=== PATIENT | female | born 2000 | race Caucasian/White ===

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

== ENCOUNTER → 2019-03-02 12:34 | Outpatient (CLI) | payer MEDICAID, SELFPAY ==
[2019-03-02 13:37] LABS: HCG,Quantitative 3199 mIU/mL
== END ==
PROVIDERS: Visit Provider Nurse Practitioner Obstetrics & Gynecology
DX: Z32.00 Encounter for pregnancy test, result unknown (principal)
CPT/HCPCS: 36415; 84702

== ENCOUNTER → 2019-03-31 08:16 | Outpatient (CLI) | payer MEDICAID, SELFPAY ==
--- NOTE | 2019-03-31 08:38 | US_ITS ---
US OB transvaginal: INDICATION: ITS.REASON: US OB Dates ORDERING PHYSICIAN: Tito Merchant MD PATIENT AGE: 19 years FINDINGS: There is a single live intrauterine gestation with a crown-rump length of 2.4 cm correlating to gestational age of 9 weeks and 1 day. Estimated due date by ultrasound is 11/02/2019. Yolk sac is still visible. Amniotic and chorion have not yet fused. heart tones are present at FHR 172 bpm. Adnexa have an unremarkable appearance. There is a 15 mm right corpus luteum cyst. IMPRESSION: Live intrauterine gestation at 9 weeks 1 day with an estimated due date by ultrasound of 11/02/2019.
== END ==
PROVIDERS: PCP Orthopaedic Surgery; Visit Provider Nurse Practitioner Obstetrics & Gynecology
DX: O26.841 Uterine size-date discrepancy, first trimester (principal)
CPT/HCPCS: 76817

== ENCOUNTER → 2019-06-19 13:25 | Outpatient (CLI) | payer MEDICAID, SELFPAY ==
--- NOTE | 2019-06-19 13:31 | US_ITS ---
PROCEDURE: US OB /MATERNAL DETAIL CLINICAL INDICATION: 20 wk + Anatomy Scan-US OB COMPLETE COMPARISON: No exams were available for comparison FINDINGS: Single viable intrauterine gestation. Breech position. Placenta: Posteriorplacenta grade 1. There is average amount fluid. The cervix appears satisfactory. Closed and measuring 3 cm in length. Complete survey performed and was unremarkable on the submitted images as in PACS. No discrete anomalies identified on survey imaging by technologist. Active fetus. Three-vessel cord with satisfactory umbilical cord insertion. 4- chamber heart noted. Survey of brain & ventricles Unremarkable. Face and neck survey unremarkable. Diaphragm and chest views unremarkable. Abdomen: Both kidneys noted and unremarkable. Stomach noted and satisfactory. Spine: Survey of the spine satisfactory with no anomalies identified nor imaged. Both arms and legs noted. Amniotic Fluid: Adequate. Maternal adnexa: No significant findings. Measurements: Average ultrasound age 20w1d. Gestational Age 20w5d Estimated due date by ultrasound age 0311/05/2019. Estimated weight 345.7 ggrams. BPD = the 19 week 4 day OFD = 20 weeks 6 day HC = 19 week 5 day AC = 20 week 6 day FL = 20 weeks 0 day Growth Percentile= 25% Heart Rate = 139 bpm Cerebellum = 19 weeks 6 day Humerus = 21 week 1 day HC/AC is 1.08 CI is 0.72 FL/BPD is 0.72 FL/AC is 0.2 IMPRESSION: There is a single live fetus which is in breech presentation with an average ultrasound age of 20 weeks and 1 day. All parameters correlate with no obvious anomalies. Please see above for detail Dictated by: Diogenes Lilly MD 06/19/2019 16:19 Electronically signed by Diogenes Lilly MD in [place] 06/19/2019 16:19
== END ==
PROVIDERS: PCP Nurse Practitioner; Visit Provider Nurse Practitioner Obstetrics & Gynecology
DX: Z36.0 Encounter for antenatal screening for chromosomal anomalies (principal)
CPT/HCPCS: 76811

== ENCOUNTER → 2019-07-01 12:00 | Outpatient (CLI) | payer MEDICAID, SELFPAY ==
[2019-07-01 13:40] LABS: Basophils % 0.5 % (0.1-2.0); Eosinophils # 0.1 K/mm3 (0.0-0.4); Eosinophils % 0.9 % (0.1-12.0); Hematocrit 39.1 % (37.0-47.0); Hemoglobin 12.9 g/dL (12.2-16.2); Lymphocytes % 23.3 % (10-50); Mean Corpuscular Hemoglobin 35.1 pg (27.0-31.2); Mean Corpuscular Volume 106.2 fl (81-99); Mean Platelet Volume 8.4 fl (7.4-10.4); Monocytes # 0.3 K/mm3 (0.1-1.0); Monocytes % 3.1 % (1.7-9.3); Neutrophils # 6.3 K/mm3 (1.8-7.8); Neutrophils % 72.2 % (37.0-80.0); Platelet Count 303 K/mm3 (142-424); Red Blood Count 3.68 M/mm3 (4.20-5.40); Red Cell Distribution Width 14.7 % (11.5-17.5); White Blood Count 8.7 K/mm3 (4.8-10.8)
[2019-07-02 08:14] LABS: HIV Screen 4th Generation wRfx Non Reactive (Non Reactive)
[2019-07-02 12:04] LABS: Hepatitis B Surface Antigen Negative (Negative); Hepatitis C Antibody <0.1 s/co ratio (0.0-0.9); Rapid Plasma Reagin Ab Titer Non Reactive (NonRea<1:1)
== END ==
PROVIDERS: Visit Provider Nurse Practitioner Obstetrics & Gynecology
DX: Z34.90 Encounter for supervision of normal pregnancy, unspecified, unspecified trimester (principal)
CPT/HCPCS: 36415; 85025; 86592; 86703; 86762; 86850; 87340; 87380; G0432

== ENCOUNTER → 2019-08-04 07:57 | Outpatient (CLI) | payer MEDICAID, SELFPAY ==
[2019-08-04 08:52] LABS: Glucose,Fasting 76 mg/dL (60-105)
[2019-08-04 10:04] LABS: Glucose 1 Hour 91 mg/dL (74-106)
== END ==
PROVIDERS: Visit Provider Nurse Practitioner Obstetrics & Gynecology
DX: Z34.90 Encounter for supervision of normal pregnancy, unspecified, unspecified trimester (principal)
CPT/HCPCS: 36415; 82951

== ENCOUNTER → 2019-09-29 17:04 | Outpatient (CLI) | payer MEDICAID, SELFPAY | LOC: LAB 17:05 → LAB.DROPOF 17:05 | PROVIDERS: Visit Provider Nurse Practitioner Obstetrics & Gynecology | DX: Z34.90 Encounter for supervision of normal pregnancy, unspecified, unspecified trimester (principal) | CPT/HCPCS: 86403 ==

== ENCOUNTER → 2019-10-22 09:44 | Outpatient (CLI) | payer MEDICAID, SELFPAY ==
[2019-10-22 10:14] LABS: Basophils % 0.2 % (0.1-2.0); Eosinophils # 0.1 K/mm3 (0.0-0.4); Eosinophils % 0.6 % (0.1-12.0); Hematocrit 34.7 % (37.0-47.0); Hemoglobin 11.4 g/dL (12.2-16.2); Lymphocytes # 1.5 K/mm3 (0.7-4.5); Lymphocytes % 16.3 % (10-50); Mean Corpuscular HGB Conc 32.8 g/dL (31.8-35.4); Mean Corpuscular Hemoglobin 31.2 pg (27.0-31.2); Mean Corpuscular Volume 95.1 fl (81-99); Mean Platelet Volume 8.3 fl (7.4-10.4); Monocytes # 0.3 K/mm3 (0.1-1.0); Monocytes % 2.8 % (1.7-9.3); Neutrophils # 7.2 K/mm3 (1.8-7.8); Platelet Count 269 K/mm3 (142-424); Red Blood Count 3.65 M/mm3 (4.20-5.40); Red Cell Distribution Width 14.7 % (11.5-17.5)
[2019-10-22 11:35] LABS: Chloride 105 mmol/L (98-107); Potassium 4.2 mmoL/L (3.5-5.1); Sodium 136 mmol/L (136-145)
[2019-10-22 11:38] LABS: Anion Gap 13.2 mEq/L (5-15); Blood Urea Nitrogen 7 mg/dl (7-17); Carbon Dioxide 22 mmol/L (22.0-30.0); Estimated Glomerular Filt Rate 126 ml/min (>60); GFR (African American) 153 ML/MIN (>60)
[2019-10-22 11:39] LABS: Calcium 8.9 mg/dl (8.4-10.2); Glucose 88 mg/dl (74-100)
== END ==
PROVIDERS: Visit Provider Nurse Practitioner Obstetrics & Gynecology
DX: Z01.818 Encounter for other preprocedural examination (principal); O34.219 Maternal care for unspecified type scar from previous cesarean delivery; O82 Encounter for cesarean delivery without indication
CPT/HCPCS: 36415; 80048; 85025

== ENCOUNTER 2019-10-26 04:57 | Inpatient (IN) ==
[2019-10-26 05:36] LABS: Basophils # 0.1 K/mm3 (0-0.2); Basophils % 0.5 % (0.1-2.0); Eosinophils # 0.1 K/mm3 (0.0-0.4); Eosinophils % 0.7 % (0.1-12.0); Hematocrit 33.7 % (37.0-47.0); Hemoglobin 10.8 g/dL (12.2-16.2); Lymphocytes # 2.3 K/mm3 (0.7-4.5); Lymphocytes % 24.8 % (10-50); Mean Corpuscular HGB Conc 32.1 g/dL (31.8-35.4); Mean Corpuscular Volume 93.5 fl (81-99); Mean Platelet Volume 8.6 fl (7.4-10.4); Monocytes # 0.4 K/mm3 (0.1-1.0); Neutrophils # 6.6 K/mm3 (1.8-7.8); Platelet Count 303 K/mm3 (142-424); Red Cell Distribution Width 14.5 % (11.5-17.5); White Blood Count 9.4 K/mm3 (4.8-10.8)
[2019-10-26 05:36] LABS: Microscopic, Urine URINE MICROSCOPIC (MICROSCOPIC)
[2019-10-26 05:45] LABS: Calcium 8.6 mg/dl (8.4-10.2)
[2019-10-26 05:48] LABS: Appearance,Urine CLEAR (Clear); Bilirubin,Urine Negative (Negative); Blood, Urine 1+ (Negative); Color,Urine YELLOW (Yellow); Glucose,Urine (UA) Negative (Negative); Ketones,Urine Negative (Negative); Leukocyte Esterase,Urine Negative (Negative); Protein,Urine Negative (Negative); Urobilinogen,Urine 0.2 EU/dl (0.2)
[2019-10-26 06:02] LABS: Amphetamine/Metha Screen,Urine Negative ng/ml (<1000); Benzodiazepines Screen,Urine Negative ng/ml (<200)
[2019-10-26 06:03] LABS: Barbiturates Screen,Urine Negative ng/ml (<200); Cannabinoid Screen,Urine Negative ng/ml (<50)
[2019-10-26 06:04] LABS: Cocaine Screen,Urine Negative ng/ml (<300)
[2019-10-26 06:05] LABS: Methadone Screen,Urine Negative ng/ml (<300); Opiate Screen,Urine Negative ng/ml (<300)
[2019-10-26 06:06] LABS: Phencyclidine Screen,Urine Negative ng/ml (<25)
--- NOTE | 2019-10-26 08:17 | Operative Note ---
Date of procedure: 10/26/19 Pre-op Diagnosis:: Term , previous section Post-op Diagnosis:: Term , previous section Procedure performed:: Repeat lower segment transverse section Surgeon:: Tito Merchant MD Press Tender Short Goods(s):: Mare Grace MOTOR VEHICLE REPRESENTATIVE:: Chaka Valle Anesthesia: spinal Estimated blood loss (mL): 600 Clinical Note:: She is a 19-year-old 2 para 1 who is 39+ weeks gestational age. She is had a previous section and as result of that was offered repeat lower segment transverse section. Operative findings:: She delivered a liveborn female child at 7:43 AM on the morning of October 26, 2019. The baby had Apgars of 8 at 1 minute and 9 at 5 minutes. pH was 7.43. Ovaries and tubes appeared normal. There were a few adhesions of omentum along the anterior peritoneum. The lower segment was quite thin. Operative note:: She was taken to the operating room where spinal anesthesia was found be adequate. She was prepped and draped in normal sterile fashion in the supine position with a leftward tilt. A Sanchez catheter was in the bladder. A Pfannenstiel skin incision was made with knife then carried through to the underlying layer of fascia with cautery. The fascia was opened in the midline wi th cautery and extended laterally using Gonzáles scissors. Lutz clamps were applied to the superior aspect of the fascial incision which was tented up and the underlying rectus muscles dissected off using cautery. The Shaina clamps were then applied to the inferior aspect of the fascial incision which in a similar fashion was tented up and the underlying rectus muscles dissected off using cautery. The rectus muscles were then in the midline, the peritoneum identified, and entered sharply with Metzenbaum scissors. This incision was then extended superiorly and inferiorly with cautery. We had good visualization of the bladder inferiorly. The bladder peritoneum was then opened in the midline and extended laterally using Metzenbaum scissors. A bladder flap was created digitally. Transverse incision was made through the uterine muscle to the amnion. This incision was then extended laterally using fingers traction. The amnion was entered sharply with knife. There was clear amniotic fluid. The infant's head was then delivered atraumatically. This was followed by the anterior shoulder and the rest of the 's body atraumatically. The oropharynx and nasopharynx were bulb suctioned. We allowed the cord to continue to pulsate for approximately 1 minute. The was then handed off to Dr. Murray who assigned Apgars of 8 at 1 minute and 9 at 5 minutes. We then obtained cord blood as well as cord pH. The pH was 7.43. Using gentle traction on the cord and countertraction on the fundus I was able to easily deliver the placenta intact. It had a normal three-vessel cord. The uterus was then cleared of clots and debris . The uterine incision was then closed using running 0 Vicryl suture in a locked fashion. A second layer of the same suture was used to imbricate the first layer. The bladder peritoneum was then closed using running 2-0 Vicryl suture in a locked fashion. The gutters and cul-de-sac were then cleared of clots and debris . Once again hemostasis was assured. The uterus was then returned to the abdominal cavity. There were some adhesions of omentum to the left side of the peritoneum anteriorly and these were taken down with cautery. I then placed a large piece of Interceed along the uterine incision. The peritoneum was grasped with Allison clamps and closed using running 2-0 Vicryl suture. The rectus muscles were then reapproximated using running 0 Vicryl suture. The fascia was closed using running #1 Vicryl suture. The subcutaneous tissues were then irrigated with warm water followed by closure Priya's fascia using running 2-0 Monocryl suture. The skin was closed with ursula. I then cleaned the skin with Hibiclens. Sterile dressings were applied. She tolerated the procedure well and was taken to the recovery room in excellent condition. All sponges minute and needle counts were correct. Estimate a blood loss was approximately 600 mL. Condition: stable Disposition: PACU Specimens:: Products of conception Complications:: None
--- NOTE | 2019-10-26 08:19 | Progress Note ---
[facility] Anesthesia Checklist - Structural Data Admitted From: Inpatient Planned Operative Procedure/s: c/section Consent for Planned Operative Procedure(s) Verified: Yes - Additional verifications Anesthesia Reactions: No Hx Blood Transfusions: No Blood Transfusion Reaction: No - Airway Assessment C-Spine Mobility Assessed: Yes TMJ Mobility Assessed: Yes Dentition: Good Dentition - Neurological Assessment Level of Consciousness: Awake, Alert, Appropriate - Anesthesia Plan Anesthesia Risk discussed: Yes Anesthesia Plan: Verified ASA Class: III Anesthesia Type: Spinal [facility] History I have reviewed the patient's past medical history: Yes Medical History: Reports:: Asthma, Migraine Denies:: Cancer, Diabetes Mellitus Type 1, Diabetes Mellitus Type 2, MRSA, Seizures *Have you ever received a pneumonia vaccine?: No *Have you received a flu vaccine this season?: No Other Medical History: Denies: Blood Transfusion Reaction Anesthesia experience/problems:: none Other Surgeries: Yes: No Previous Surgery, Other. No: Amputation: No Fractures: No - *Social History Smoking Status: Never smoker Alcohol Intake: never Alcohol Intake Frequency:: other Substance Use Type: denies use *Occupational Status:: employed Housing: house Household Members: significant other *Travel in the last 8 weeks: None Family Hx:: Hypertension STAFF AIR TACTICAL OFFICER history: no No STAFF AIR TACTICAL OFFICER history, no Non-contributory, no Spontaneous , no Therapeutic , no Cervical Cancer, no Abnormal Uterine Bleeding, no Ovarian Cancer, no dysfunctional uterine bleed, no Endometriosis, no Ectopic , no Polycystic Ovary Syndrome, no Uterine Fibroids, no T ubal Ligation, no , no Failure to Progress, no Additional STAFF AIR TACTICAL OFFICER History Para: 1
--- NOTE | 2019-10-26 08:20 | Progress Note ---
[facility] Anesthesia Record Part I Intake, IV Amount: 1,500 Estimated blood loss (mL): 600 Urine output (mL): 250 Blood Pressure: 121/62 SaO2: 98 Pulse Rate: 82 Respiratory Rate: 12 Temperature: 97.8 F Patient is:: Awake, Stable Stable to PACU at:: 08:15
--- NOTE | 2019-10-26 08:23 | History & Physical Report ---
OB - H&P: HPI Antepartum - History of Present Illness Chief complaint: Term , previous section History of present illness: She is a 19-year-old 2 para 1 at 39 weeks gestational age. She is had a previous section and as result of that was offered repeat lower segment transverse section at term. - History of Present Criteria for establishing EDC:: LMP confirmed by 1st trimester US care: good care Ultrasounds: normal 1st trimester US, normal mid trimester US Obstetrical complications: none, previous Medical complications: none [facility] History I have reviewed the patient's past medical history: Yes Medical History: Reports:: Asthma, Migraine Denies:: Cancer, Diabetes Mellitus Type 1, Diabetes Mellitus Type 2, MRSA, Seizures *Have you ever received a pneumonia vaccine?: No *Have you received a flu vaccine this season?: No Other Medical History: Denies: Blood Transfusion Reaction Anesthesia experience/problems:: none Other Surgeries: Yes: No Previous Surgery, Other. No: Amputation: No Fractures: No - *Social History Smoking Status: Never smoker Alcohol Intake: never Alcohol Intake Frequency:: other Substance Use Type: denies use *Occupational Status:: employed Housing: house Household Members: significant other *Travel in the last 8 weeks: None Family Hx:: Hypertension LOCAL TANKER TRUCK DRIVER history: no No LOCAL TANKER TRUCK DRIVER history, no Non-contributory, no Spontaneous , no Therapeutic , no Cervical Cancer, no Abnormal Uterine Bleeding, no Ovarian Cancer, no dysfunctional uterine bleed, no Endometriosis, no Ectopic , no Polycystic Ovary Syndrome, no Uterine Fibroids, no Tubal Ligation, no , no Failure to Progress, no Additional LOCAL TANKER TRUCK DRIVER History Para: 1 Review of Systems - Review of Systems Review of systems:: pertinent systems reviewed and negative unless documented below Meds Home Medications Medication Instructions Recorded Confirmed Type prenat.vits,gautam,lgt-abpf-cuxqa 1 tab PO DAILY 08/29/17 10/26/19 History Allergies Allergy/AdvReac Type Severity Reaction Status Date / Time No Known Allergies Allergy Verified 10/20/19 08:06 OB - H&P: Exam - Physical Exam Vital signs: Temp Pulse Resp BP Pulse Ox 97.8 F 82 12 121/62 99 10/26/19 08:20 10/26/19 08:20 10/26/19 08:20 10/26/19 08:20 10/26/19 06:02 - Constitutional no acute distress - Routine HEENT Exam Head: Present: normocephalic Eye: Present: EOMI, PERRL ENT: Present: mucous membranes moist - Routine Neck Exam Present: supple, full ROM - Routine Respiratory Exam Absent: accessory muscle use (good air entry bilaterally), respiratory distress, wheezes, crackles - Routine Cardiovascular Exam Present: RRR. Absent: murmur - Routine Abdominal Exam Present: soft, normoactive bowel sounds. Absent: tenderness, distended, guarding - Routine Rectal Exam Patient deferred: visual exam, digital exam - Routine Exam Patient deferred: external exam, groin exam, perineal exam - Routine Extremities Exam Present: full ROM. Absent: cyanosis, edema - Routine Skin Exam Present: intact. Absent: cyanosis - Routine Neurological Exam Present: alert, oriented X3 - Routine Psychiatric Exam Present: normal affect OB - Results - Labs Labs: Short CBC 10/26/19 Range/Units 05:25 WBC 9.4 (4.8-10.8) K/mm3 Hgb 10.8 L (12.2-16.2) g/dL Hct 33.7 L (37.0-47.0) % Plt Count 303 (142-424) K/mm3 BMP 10/26/19 05:25 Sodium 136 Potassium 4.0 Chloride 108 H Carbon Dioxide 18 L BUN 12 Creatinine 0.60 Glucose 78 Calcium 8.6 Urine 10/26/19 Range/Units 05:05 Urine Color Yellow (Yellow) Urine Appearance Clear (Clear) Urine pH 6.0 (5.0-8.5) Ur Specific [place] 1.020 (1.005-1.030) Urine Protein Negative (Negative) Urine Glucose (UA) Negative (Negative) OB - A/P Antepartum (1) Previous section complicating , with delivery Current visit: Yes Status: Acute (2) Delivery by section of full-term infant Current visit: Yes Status: Acute (3) Chronic hypertension during Current visit: No Status: Acute - Additional Plan Planning to breastfeed?: Yes Plan: other Additional Information:: She is term and she is here for a repeat lower segment transverse section.
[2019-10-27 06:57] LABS: Hematocrit 31.8 % (37.0-47.0)
--- NOTE | 2019-10-27 08:18 | Progress Note ---
Internal Medicine - PN: Subj *Date: 10/27/19 *Time: 08:17 Interval history: She is doing well this morning. She is eating and drinking and ambulating. She is breast-feeding. Her lochia is normal. Her hemoglobin is stable. Exam Vital signs and Labs for Last 24 Hours: Temp Pulse Resp BP Pulse Ox 97.3 F L 78 18 106/64 L 100 10/26/19 09:00 10/26/19 09:00 10/26/19 09:00 10/26/19 09:00 10/26/19 09:00 Laboratory Results - last 24 hr 10/26/19 07:25: Urine Color Yellow, Urine Appearance Clear, Urine pH 6.0, Ur Specific [place] 1.025, Urine Protein Negative, Urine Glucose (UA) Negative, Urine Ketones Negative, Urine Blood Trace-i, Urine Nitrate Negative, Urine Bilirubin Negative, Urine Urobilinogen 0.2, Ur Leukocyte Esterase Negative, Urine RBC 5-10, Urine WBC 3-5, Ur Squamous Epith Cells Occasional, Urine Bacteria Trace 10/27/19 06:20: Hgb 10.0 L, Hct 31.8 L I & O for Last 24 hours: Intake & Output 10/24/19 10/25/19 10/26/19 10/27/19 11:59 11:59 11:59 11:59 Intake Total 1500 / 1500 Output Total 200 / 200 1400 / 1400 Balance 1300 / 1300 -1400 / -1400 Weight 244 lb - Constitutional no acute distress - *Routine HEENT Exam Head: Present: normocephalic Eye: Present: EOMI, PERRL ENT: Present: mucous membranes moist Assessment and Plan (1) Previous section complicating , with delivery Current visit: Yes Status: Acute Category: Surgical Code(s): O34.219 - Maternal care for unspecified type scar from previous delivery (2) Delivery by section of full-term Current visit: Yes Status: Acute Category: Medical Code(s): O82 - Encounter for delivery without indication (3) Chronic hypertension during Current visit: No Status: Acute Category: Medical Code(s): O10.919 - Unspecified pre-existing hypertension complicating , unspecified trimester - Assessment and plan all Dx Assessment and Plan for all problems:: She continues to do well. She is eating and drinking and ambulating. We will plan to send her home in 48 hours. She is 1 day postop from her .
--- NOTE | 2019-10-27 13:53 | Pharmacy Consult Notes ---
[facility] Pharmacy VTE Monitoring - Patient Demographics Admission date: 10/26/19 Report Date: 10/27/19 Time: 13:53 Allergies/Adverse Reactions: Patient Allergies No Known Allergies Allergy (Verified 10/20/19 08:06) Height: 1.6 m Weight: 110.677 kg Patient Problems: Current Active Problems Previous section complicating , with delivery (Acute) Delivery by section of full-term infant (Acute) - VTE Risk Labs: VTE Related Lab Results Hgb 10.0 g/dL (12.2-16.2) L 10/27/19 06:20 Hct 31.8 % (37.0-47.0) L 10/27/19 06:20 Plt Count 303 K/mm3 (142-424) 10/26/19 05:25 BUN 12 mg/dl (7-17) 10/26/19 05:25 Creatinine 0.60 mg/dl (0.52-1.04) 10/26/19 05:25 Estimated Creat Clear 123 mL/min (50-200) 10/26/19 05:25 - Prophylaxis VTE Prophylaxis Ordered?: Yes Types of VTE Prophylaxis: IPCS Thigh High Location of Applied Device: Bilateral Lower Extremeties
--- NOTE | 2019-10-28 08:27 | Progress Note ---
Internal Medicine - PN: Subj *Date: 10/28/19 *Time: 08:26 Interval history: She is doing well this morning. She is eating and drinking and ambulating. Her lochia is normal. Her pain is well controlled. We will plan to send her home tomorrow. Exam Vital signs and Labs for Last 24 Hours: Temp Pulse Resp BP Pulse Ox 99.3 F 92 H 18 110/56 L 99 10/27/19 15:55 10/27/19 15:55 10/27/19 15:55 10/27/19 15:55 10/27/19 15:55 I & O for Last 24 hours: Intake & Output 10/25/19 10/26/19 10/27/19 10/28/19 11:59 11:59 11:59 11:59 Intake Total 1500 / 1500 Output Total 200 / 200 1400 / 1400 Balance 1300 / 1300 -1400 / -1400 Weight 244 lb - Constitutional no acute distress - *Routine HEENT Exam Head: Present: normocephalic Eye: Present: EOMI, PERRL ENT: Present: mucous membranes moist Assessment and Plan (1) Previous section complicating , with delivery Current visit: Yes Status: Acute Category: Surgical Code(s): O34.219 - Maternal care for unspecified type scar from previous delivery (2) Delivery by section of full-term Current visit: Yes Status: Acute Category: Medical Code(s): O82 - Encounter for delivery without indication (3) Chronic hypertension during Current visit: No Status: Acute Category: Medical Code(s): O10.919 - Unspecified pre-existing hypertension complicating , unspecified trimester - Assessment and plan all Dx Assessment and Plan for all problems:: She is doing very well. We will see her back again in the morning and plan to send her home tomorrow.
--- NOTE | 2019-10-29 08:14 | Discharge Summary ---
General - General Admission date:: 10/26/19 Discharge date: 10/29/19 HPI HPI: She is a 19-year-old 2 now para 2 who was 39 weeks gestational age. She is had a previous section and as result of that was offered repeat lower segment transverse section at term. Hospital Course Hospital Course: On October 26, 2019 she underwent a repeat lower segment transverse section. She delivered a liveborn female child at 7:43 AM. The baby weighed 6 pounds 11 ounces with Apgars of 9 at 1 minute and 9 at 5 minutes. She has done well postoperatively and has remained afebrile throughout her hospitalization. She is eating and drinking and ambulating. She is bottlefeeding. She is discharged home to follow-up with me in approximately 2 weeks time. She will continue with her vitamins and iron. She has O Rh+ blood, she is rubella immune and was group B streptococcus negative. She was given a prescription for Percocet 5/325 number 20 tablets. Her condition on discharge is stable and improved. Rhogam Administration: Not Indicated Objective Vital signs: Temp Pulse Resp BP Pulse Ox 98.2 F 95 H 16 104/58 L 100 10/28/19 23:57 10/28/19 23:57 10/28/19 23:57 10/28/19 23:57 10/28/19 20:30 no acute distress - *Routine HEENT Exam Head: Present: normocephalic Eye: Present: EOMI, PERRL ENT: Present: mucous membranes moist DS: Diagnosis - Discharge Diagnosis (1) Previous section complicating , with delivery Status: Acute (2) Delivery by section of full-term infant Status: Acute (3) Chronic hypertension during Status: Acute Discharge Plan - Patient Discharge Instructions ACTIVITY: No heavy lifting DIET: continue same diet Additional Instructions: no heavy lifting, no driving for 2 weeks or while taking prescription narcotics, nothing in the vagina for 6 weeks. Patient Instructions: Depression, Hemorrhage, DI for , DI for Surgical Site Infection, DI for Postoperative Pain, [facility] Post Discharge Instructions - Follow up Plan Follow up with: Tito Merchant MD [Staff Physician] - Disposition: Home, Self-Snf Medications: Home Medications Medication Instructions Recorded Confirmed Type prenat.vits,gautam,[id number] 1 tab PO DAILY 08/29/17 10/26/19 History Oxycodone HCl/Acetaminophen 1 tab PO Q6 PRN #20 tab 10/29/19 Rx [Percocet 5/325mg tablet] Prescriptions/Medication Reconciliation: New Oxycodone HCl/Acetaminophen [Percocet 5/325mg tablet] 1 tab PO Q6 PRN #20 tab PRN Reason: Severe Pain Continued prenat.vits,gautam,[id number]-[id number] 1 tab PO DAILY - Problem Reconciliation Problems Reviewed?: Yes
[2019-10-29 08:39] VITALS: BP 111/70
== END 2019-10-29 11:00 | disposition home or self-care (01) | DRG 788 ==
LOC: OB 04:57
PROVIDERS: ADMIT Nurse Practitioner Obstetrics & Gynecology; ATTEND Nurse Practitioner Obstetrics & Gynecology